=== PATIENT | female | born 1980 | race African-American/Black ===

== ENCOUNTER 2019-12-27 21:11 | Emergency (ER) | payer OTHER ==
--- NOTE | 2019-12-27 23:26 | ER ---
Nurse's Notes [facility] Name: Efren Her Age: 39 yrs Sex: Female : 1980 Arrival Date: 12/27/2019 Time: 21:13 Bed 30 Private MD: Diagnosis: Superficial injury of head Presentation: 12/27 21:27 Chief complaint: Patient states: FELL GETTING OUT OF WHEELCHAIR TO BED. PT STATES SHE ls4 BUMPED HER HEAD. Care prior to arrival: None. Mechanism of Injury: Fall approximately 1.5 feet. Trauma event details: Injury occurred in the [facility], Injury occurred: in an institution. 21:27 Acuity: CONNIE 3 ls4 21:27 Method Of Arrival: EMS: [facility] ls4 21:44 Ebola Screen: No symptoms or risks identified at this time. Initial Sepsis Screen: Does ls4 the patient meet any 2 criteria? No. Patient's initial sepsis screen is negative. Does the patient have a suspected source of infection? No. Patient's initial sepsis screen is negative. Risk Assessment: Do you want to hurt yourself or someone else? Patient reports no desire to harm self or others. 21:44 Onset of symptoms was December 27, 2019 at 20:45. ls4 Triage Assessment: 21:35 General: SEE TRIAGE NOTE . 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 LMP N/A - Hysterectomy ls4 Trauma Activation: Not Applicable Physician: ED Physician; Name: ; Notified At: ; Arrived At: Physician: General Surgeon; Name: ; Notified At: ; Arrived At: Physician: Radiology; Name: ; Notified At: ; Arrived At: Physician: Respiratory; Name: ; Notified At: ; Arrived At: Physician: Lab; Name: ; Notified At: ; Arrived At: Historical: - Allergies: 21:35 Vicodin; ls4 - PMHx: 21:35 MULTIPLE SCLEROSIS; Depression; URINARY INCONTINENCE; Chronic pain; Anxiety; Bipolar ls4 disorder; Seizures; Hyperlipidemia; FREQUENT FALLS; - PSHx: 21:35 Hysterectomy; Tonsillectomy; ls4 - Immunization history:: Adult Immunizations up to date, Last tetanus immunization: up to date Flu vaccine is up to date. - Social history:: Smoking status: unknown. - Coronavirus screen:: The patient has NOT traveled to [place] in the past 14 days. Proceed with normal triage process as indicated. - Ebola Screening: : No symptoms or risks identified at this time. Screenin:43 Abuse screen: Denies threats or abuse. Denies injuries from another. Nutritional ls4 screening: No deficits noted. Tuberculosis screening: No symptoms or risk factors identified. Fall Risk None identified. Assessment: 21:27 General: Appears in no apparent distress. comfortable, Behavior is calm, cooperative. ls4 Pain: Complains of pain in occipital area Pain currently is 3 out of 10 on a pain scale. Neuro: Level of Consciousness is awake, alert, obeys commands, Oriented to person, place, time, situation, Sugar Presser are equal bilaterally Moves all extremities. Weakness Gait is ataxic, BASELINE FOR PATIENT, SHE HAS MS. . Speech is normal, Facial symmetry appears normal, Pupils are PERRLA, Cardiovascular: No deficits noted. Respiratory: No deficits noted. GI: No deficits noted. : No deficits noted. Derm: Skin is intact, Skin is dry, Skin is normal, Skin temperature is warm Wound noted Other: NO VISIBLE WOUNDS Bruising that is NONE . Musculoskeletal: Circulation, motion, and sensation intact. Range of motion: limited in left hip, left knee, right hip and right knee Swelling absent. 22:51 Reassessment: Patient appears in no apparent distress at this time. Patient and/or ls4 family updated on plan of care and expected duration. Pain level reassessed. Patient is alert, oriented x 3, equal unlabored respirations, skin warm/dry/pink. 12/28 00:02 Reassessment: Patient appears in no apparent distress at this time. Patient and/or ls4 family updated on plan of care and expected duration. Pain level reassessed. Patient is alert, oriented x 3, equal unlabored respirations, skin warm/dry/pink. 01:10 Reassessment: Patient appears in no apparent distress at this time. Patient and/or ls4 family updated on plan of care and expected duration. Pain level reassessed. Patient is alert, oriented x 3, equal unlabored respirations, skin warm/dry/pink. ELIZABETH FROM [facility] CALLED TO NOTIFY US THAT SHE IS STILL WORKING ON TRANSPORT BACK TO FACILITY FOR THIS PATIENT. 02:45 Reassessment: Patient appears in no apparent distress at this time. awaiting transport sg to be arranged from [facility] at this time, pt stated understanding, pt reports having pain at this time, requesting tylenol #3 as this is what she normally takes at the [facility]. 03:20 Reassessment: Patient appears in no apparent distress at this time. pt complaining of sg pain, requesting a tylenol with codeine as this is what she normally takes at home, notified, orders received,pt medicated. Continue to wait for transport to [facility]. 04:46 Reassessment: Patient appears in no apparent distress at this time. Patient and/or sg family updated on plan of care and expected duration. Pain level reassessed. pt laying left side lying position, resp even and unlabored, VS are WNL at this time, awaiting transportation back to [facility] at this time. 05:29 Reassessment: Patient appears in no apparent distress at this time. Cardiovascular: sg Rhythm is sinus bradycardia on bedside monitor. Respiratory: Airway is patent Respiratory effort is even, unlabored, Respiratory pattern is regular, symmetrical, snoring sound heard from pt who is lying right side position, appear comfortable and relaxed at this time. Derm: Skin is normal, Skin temperature is warm. 06:38 Reassessment: Patient appears in no apparent distress at this time. [facility] calls sg to report that they have not succesfully reached a transport service, nurse states " awaiting call backs from order entry administrator approved transport services for their facility, still no call back at this time." pt to be transferred back to [place] once transportation is arranged. 06:45 Reassessment: Day nurse for reports that they will have transport arranged sg around 0800 this morning when the ed transporter arrives for duty. pt continues to await for transport at this time, no distress noted. 07:01 Reassessment: Report received from Shin Scales RN. Awaiting to [facility] for transportation ss back to facility who is reportedly supposed to be here just after 0800 this AM. Pt is resting comfortably in exam room 30 with side rails up x2. Eyes closed, respirations remain even and unlabored. Noise minimized for comfort. 08:25 Reassessment: [facility] transportation tech here to take patient back to facility, but did ss not bring her wheelchair. Diet tray arrived. Assisting patient with feeding while transport techs goes back to facility to obtain wheelchair. 09:10 Reassessment: Pt ate 50% of diet tray. ss Vital Signs: 12/27 21:35 BP 130 / 82; Pulse 74; Resp 16; Temp 98.1(O); Pulse Ox 100% on R/A; Weight 93.44 kg; ls4 Height 5 ft. 0 in. (152.40 cm); Pain 3/10; 22:10 BP 105 / 70; Pulse 70; Resp 14; Pulse Ox 98% ; Pain 3/10; ls4 23:23 BP 110 / 68; Pulse 71; Resp 16; Pulse Ox 99% on R/A; ls4 12/28 01:11 BP 119 / 75; Pulse 70; Resp 14; Temp 98.0(O); Pulse Ox 100% ; Pain 0/10; ls4 02:15 BP 108 / 72; Pulse 77; Resp 16; Pulse Ox 100% on R/A; sg 03:23 BP 111 / 54; Pulse 72; Resp 16; Pulse Ox 100% on R/A; sg 04:47 BP 115 / 60; Pulse 77; Resp 17; Pulse Ox 100% on R/A; Pain 2/10; sg 05:30 BP 92 / 55; Pulse 67; Resp 14; Pulse Ox 99% on R/A; sg 12/27 21:35 Body Mass Index 40.23 (93.44 kg, 152.40 cm) ls4 Eckert Coma Score: 12/27 21:36 Eye Response: spontaneous(4). Verbal Response: oriented(5). Motor Response: obeys jr8 commands(6). Total: 15. ED Course: 21:13 Patient arrived in ED. ls4 21:26 Ann Quiroga, DEJA is Primary Nurse. ls4 21:28 Triage completed. ls4 21:36 Alvaro Graff PA is PHCP. jr8 21:36 Vj Solorio MD is Attending Physician. jr8 21:38 Arm band placed on right wrist. CT ordered. ls4 21:43 Patient has correct armband on for positive identification. Bed in low position. Call ls4 light in reach. Side rails up X 1. desk monitor on. Pulse ox on. NIBP on. 21:43 No provider procedures requiring assistance completed. ls4 21:59 CT Head C Spine In Process Unspecified. EDMS 22:00 PHCP role handed off by Alvaro Graff PA kb 22:00 Dora Tobar FNP-C [facility]. kb 12/28 01:46 Primary Nurse role handed off by Ann Quiroga, DEJA 01:46 Shin Scales, RN is Primary Nurse. sg 09:10 Patient did not have IV access during this emergency room visit. ss Administered Medications: 03:20 Drug: Tylenol #3 (300 mg-30 mg) 1 tablet Route: PO; sg 04:47 Follow up: Response: No adverse reaction; Pain is decreased Outcome: 12/27 23:23 Discharge ordered by MD. kb 23:46 Discharged to [facility]. Report called to ELIZABETH PALMER, SHE IS CALLING FOR ls4 TRANSPORT. 12/28 09:10 Condition: stable ss Discharge instructions given to patient, Instructed on discharge instructions, follow up and referral plans. Demonstrated understanding of instructions, follow-up care. 09:11 Patient left the ED. ss Signatures: Dispatcher [employer] EDMS Dora Tobar FNP-C ARMATURE WINDER REPAIR HELPER-Ckb Shin Scales, DEJA SHORT Risa Levine RN RN Alvaro Graff PA PA jr8 Ann Quiroga, RN RN ls4
--- NOTE | 2019-12-27 23:26 | EDPHYS ---
Physician Documentation [facility] Name: Efren Her Age: 39 yrs Sex: Female : 1980 Arrival Date: 12/27/2019 Time: 21:13 Bed 30 Private MD: ED Physician Vj Solorio HPI: 12/27 21:36 This 39 yrs old Female presents to ER via EMS with complaints of head injury. jr8 21:36 The patient or guardian reports tenderness. The complaints affect the occipital area. jr8 Context of injury: The problem was sustained at home, resulted from a fall, out of chair trying to transfer to bed. Onset: The symptoms/episode began/occurred acutely, today. Associated signs and symptoms: Loss of consciousness: This patient experience a loss of consciousness. Severity of symptoms: At their worst the symptoms were moderate, in the emergency department the symptoms have improved, moderately. The patient has not experienced similar symptoms in the past. The patient has not recently seen a physician. 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 - Social history:: Smoking status: unknown. - Coronavirus screen:: The patient has NOT traveled to [place] in the past 14 days. Proceed with normal triage process as indicated. - Ebola Screening: : No symptoms or risks identified at this time. ROS: 21:36 Eyes: Negative for injury, pain, redness, and discharge, ENT: Negative for injury, jr8 pain, and discharge, Neck: Negative for injury, pain, and swelling, Cardiovascular: Negative for chest pain, palpitations, and edema, Respiratory: Negative for shortness of breath, cough, wheezing, and pleuritic chest pain, Abdomen/GI: Negative for abdominal pain, nausea, vomiting, diarrhea, and constipation, Back: Negative for injury and pain, MS/Extremity: Negative for injury and deformity, Skin: Negative for injury, rash, and discoloration. 21:36 Neuro: Positive for headache, loss of consciousness. Exam: 21:36 Eyes: Pupils equal round and reactive to light, extra-ocular motions intact. Lids and jr8 lashes normal. Conjunctiva and sclera are non-icteric and not injected. Cornea within normal limits. Periorbital areas with no swelling, redness, or edema. ENT: Nares patent. No nasal discharge, no septal abnormalities noted. Tympanic membranes are normal and external auditory canals are clear. Oropharynx with no redness, swelling, or masses, exudates, or evidence of obstruction, uvula midline. Mucous membranes moist. Neck: Trachea midline, no thyromegaly or masses palpated, and no cervical lymphadenopathy. Supple, full range of motion without nuchal rigidity, or vertebral point tenderness. No Meningismus. Cardiovascular: Regular rate and rhythm with a normal S1 and S2. No gallops, murmurs, or rubs. Normal PMI, no JVD. No pulse deficits. Respiratory: Lungs have equal breath sounds bilaterally, clear to auscultation and percussion. No rales, rhonchi or wheezes noted. No increased work of breathing, no retractions or nasal flaring. Abdomen/GI: Soft, non-tender, with normal bowel sounds. No distension or tympany. No guarding or rebound. No evidence of tenderness throughout. Back: No spinal tenderness. No costovertebral tenderness. Full range of motion. Skin: Warm, dry with normal turgor. Normal color with no rashes, no lesions, and no evidence of cellulitis. MS/ Extremity: Pulses equal, no cyanosis. Neurovascular intact. Full, normal range of motion. Neuro: Awake and alert, GCS 15, oriented to person, place, time, and situation. Cranial nerves II-XII grossly intact. Motor strength 5/5 in all extremities. Sensory grossly intact. Resting tremor present 21:36 Head/face: Noted is tenderness, that is mild, of the occipital area. Vital Signs: 21:35 BP 130 / 82; Pulse 74; Resp 16; Temp 98.1(O); Pulse Ox 100% on R/A; Weight 93.44 kg; ls4 Height 5 ft. 0 in. (152.40 cm); Pain 3/10; 22:10 BP 105 / 70; Pulse 70; Resp 14; Pulse Ox 98% ; Pain 3/10; ls4 23:23 BP 110 / 68; Pulse 71; Resp 16; Pulse Ox 99% on R/A; ls4 12/28 01:11 BP 119 / 75; Pulse 70; Resp 14; Temp 98.0(O); Pulse Ox 100% ; Pain 0/10; ls4 02:15 BP 108 / 72; Pulse 77; Resp 16; Pulse Ox 100% on R/A; sg 03:23 BP 111 / 54; Pulse 72; Resp 16; Pulse Ox 100% on R/A; sg 04:47 BP 115 / 60; Pulse 77; Resp 17; Pulse Ox 100% on R/A; Pain 2/10; sg 05:30 BP 92 / 55; Pulse 67; Resp 14; Pulse Ox 99% on R/A; sg 12/27 21:35 Body Mass Index 40.23 (93.44 kg, 152.40 cm) ls4 Rod Coma Score: 12/27 21:36 Eye Response: spontaneous(4). Verbal Response: oriented(5). Motor Response: obeys jr8 commands(6). Total: 15. MDM: 21:36 Patient medically screened. jr8 21:36 Data reviewed: vital signs, nurses notes, radiologic studies, CT scan. Data jr8 interpreted: Pulse oximetry: on room air is 100 %. Interpretation: normal. Counseling: I had a detailed discussion with the patient and/or guardian regarding: the historical points, exam findings, and any diagnostic results supporting the discharge/admit diagnosis, radiology results, the need for outpatient follow up, a family practitioner, to return to the emergency department if symptoms worsen or persist or if there are any questions or concerns that arise at home. 12/27 21:36 Order name: CT Head C Spine jr8 12/28 06:47 Order name: Diet Regular; Complete Time: 06:47 sg Administered Medications: 12/28 03:20 Drug: Tylenol #3 (300 mg-30 mg) 1 tablet Route: PO; sg 04:47 Follow up: Response: No adverse reaction; Pain is decreased sg Disposition: 12/27/19 23:23 Discharged to Home. Impression: Superficial injury of head. - Condition is Stable. - Discharge Instructions: Head Injury, Adult, Hematoma. - Medication Reconciliation Form, Thank You Letter, Antibiotic Education, Prescription Opioid Use form. - Follow up: Private Physician; When: As needed; Reason: Recheck today's complaints, Continuance of care, Re-evaluation by your physician. - Problem is new. - Symptoms have improved. Addendum: 12/30/2019 19:02 Co-signature as Attending Physician, Vj ny Signatures: Dispatcher [employer] EDNY Dora Tobar, BULL LADLE TENDER-C BULL LADLE TENDER-Ckb Shin Scales, RN RN Vj Chandra MD MD pkRisa Armstrong RN RN Alvaro Randall PA PA jr8 Ann Quiroga RN RN ls4 Corrections: (The following items were deleted from the chart) 12/28 09:11 12/27 23:23 12/27/2019 23:23 Discharged to Home. Impression: Superficial injury of ss head. Condition is Stable. Discharge Instructions: Head Injury, Adult, Hematoma. Forms are Medication Reconciliation Form, Thank You Letter, Antibiotic Education, Prescription Opioid Use. Follow up: Private Physician; When: As needed; Reason: Recheck today's complaints, Continuance of care, Re-evaluation by your physician. Problem is new. Symptoms have improved. kb
[2019-12-28] MEDS ORDERED: CODEINE 30MG/APAP 300MG TAB ONE (03:20)
[2019-12-28 09:29] VITALS: TEMP 98
[2019-12-28 09:35] VITALS: BP 92/55; O2SAT 99
--- NOTE | 2019-12-31 15:25 | RAD REPORT ---
EXAM DESCRIPTION: CT - [id number] - 12/28/2019 12:59 am CLINICAL HISTORY: Trauma. COMPARISON: None. TECHNIQUE: CT scan of the brain and cervical spine without IV contrast. This exam was performed acco rding to our departmental dose-optimization program, which includes automated exposure control, adjus tment of the mA and/or kV according to patient size and/or use of iterative reconstruction technique. FINDINGS: BRAIN: There are scattered areas of hypoattenuation within the periventricular white matter, which likely re present chronic microvascular ischemia. No evidence of acute infarction, intracranial hemorrhage, ext ra-axial fluid collection, or midline shift. No air-fluid levels are seen in the paranasal sinuses to suggest acute sinusitis. No depressed skull fracture. CERVICAL SPINE: No acute cervical fracture or prevertebral soft tissue swelling. There is straightening of the normal cervical lordosis, which may be due to cervical collar, muscle spasm, or patient positioning. The fa cet joints and disc spaces are preserved. No advanced canal stenosis is identified. IMPRESSION: 1. No acute intracranial hemorrhage. 2. No acute fracture or subluxation of the cervical spine. Electronically signed by: Jose Marc MD 12/27/2019 10:41 PM CHECK TOTALER Due to temporary technical issues with the PACS/Fluency reporting system, reports are being signed by the in house radiologist as a courtesy to ensure prompt reporting. The interpreting radiologist is f ully responsible for the content of the report.
== END 2019-12-28 09:11 | disposition home or self-care (01) ==
LOC: ER 21:11
DX: S00.90XA Unspecified superficial injury of unspecified part of head, initial encounter (principal); W07.XXXA Fall from chair, initial encounter; Z91.81 History of falling; Y93.9 Activity, unspecified; Y92.013 Bedroom of single-family (private) house as the place of occurrence of the external cause; Z88.6 Allergy status to analgesic agent
CPT/HCPCS: 70450; 72125; 99284

== ENCOUNTER 2020-01-02 21:31 | Emergency (ER) | payer OTHER ==
--- NOTE | 2020-01-02 22:05 | RAD REPORT ---
EXAM DESCRIPTION: Melisa Single View01/02/2020 9:56 pm CLINICAL HISTORY: Chest pain COMPARISON: none FINDINGS: Elevation of left hemidiaphragm Left lateral base is mildly hazy which could indicate a small pleural effusion, pleural thickening or overlying soft tissue Lungs appear clear of acute infiltrate. Heart is mildly enlarged
--- NOTE | 2020-01-02 23:09 | ER ---
Nurse's Notes [facility] Name: Efren Her Age: 39 yrs Sex: Female : 1980 Arrival Date: 01/02/2020 Time: 21:32 Bed 18 Private MD: Diagnosis: Concussion without loss of consciousness;Contusion of unspecified part of head;Contusion of left front wall of thorax Presentation: 01/01 21:32 Chief complaint: EMS states: Reports she was trying to get chocolate syrup off the floor and fell out of the wheelchair states she fell onto her left side and hit the side of her head. Denies LOC. Care prior to arrival: BP: 131/84, pulse 65, respirations 16, O2 99% room air. 21:32 Acuity: CONNIE 3 21:32 Method Of Arrival: EMS: [facility] 21:40 Mechanism of Injury: Fall wheelchair to floor. Trauma event details: Injury occurred in the [facility], Injury occurred: [facility] Injury occurred: January 02, 2020 Injury occurred at: 21:41. 21:41 Coronavirus screen: The patient has NOT traveled to a country currently being monitored ea by the [facility] within the last 14 days. Ebola Screen: No symptoms or risks identified at this time. Initial Sepsis Screen: Does the patient meet any 2 criteria? No. Patient's initial sepsis screen is negative. Does the patient have a suspected source of infection? No. Patient's initial sepsis screen is negative. Risk Assessment: Do you want to hurt yourself or someone else? Patient reports no desire to harm self or others. Triage Assessment: 21:42 General: Appears in no apparent distress. Behavior is appropriate for age. Pain: ea Complains of pain in left side of face and left ribs. Neuro: Level of Consciousness is awake, alert, obeys commands, Oriented to person, place, time, situation. Cardiovascular: Patient's skin is warm and dry. Respiratory: Airway is patent Respiratory effort is even, unlabored, Respiratory pattern is regular, symmetrical. Derm: Skin is pink, warm \T\ dry. Trauma Activation: Not Applicable Physician: ED Physician; Name: ; Notified At: ; Arrived At: Physician: General Surgeon; Name: ; Notified At: ; Arrived At: Physician: Radiology; Name: ; Notified At: ; Arrived At: Physician: Respiratory; Name: ; Notified At: ; Arrived At: Physician: Lab; Name: ; Notified At: ; Arrived At: Historical: - Allergies: 21:42 Vicodin; ea - PMHx: 21:42 Urinary incontinence; Seizures; Multiple Sclerosis; Hyperlipidemia; frequent falls; ea Depression; Chronic pain; Bipolar disorder; Anxiety; - PSHx: 21:42 Tonsillectomy; Hysterectomy; ea - Immunization history:: Adult Immunizations up to date. - Immunization history: Last tetanus immunization: - up to date. - Social history:: Smoking status: Patient denies any tobacco usage or history of. Screenin:37 Abuse screen: Denies threats or abuse. Nutritional screening: No deficits noted. ea Tuberculosis screening: No symptoms or risk factors identified. Fall Risk Fall in past 12 months (25 points). Primary Survey: 21:38 NO uncontrolled hemorrhage observed. A: The patient is alert. Airway: patent. ea Breathing/Chest: Respiratory pattern: regular, Respiratory effort: spontaneous, unlabored. Circulation: Skin color: pink, Skin temperature: warm. Disability Alert. Exposure/Environment: There is no evidence of uncontrolled external bleeding. 22:45 Reassessment Airway Airway Patent Breathing/Chest Respiratory pattern Regular ea Respiratory effort Spontaneous Unlabored. Assessment: 23:10 Reassessment: Patient and/or family updated on plan of care and expected duration. Pain ea level reassessed. Patient is alert, oriented x 3, equal unlabored respirations, skin warm/dry/pink. 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 01/02 00:00 Reassessment: Patient and/or family updated on plan of care and expected duration. Pain ea level reassessed. Patient is alert, oriented x 3, equal unlabored respirations, skin warm/dry/pink. 01:35 Reassessment: Patient and/or family updated on plan of care and expected duration. Pain ea level reassessed. Patient is alert, oriented x 3, equal unlabored respirations, skin warm/dry/pink. [facility] at facility for transfer, pt left ED via [facility]. Pt left facility via stretcher tolerating well. Vital Signs: 01/01 21:38 BP 133 / 73; Pulse 65; Resp 18; Temp 98; Pulse Ox 98% on R/A; Weight 59.87 kg; Height 5 ea ft. (152.40 cm); Pain 3/10; 22:45 BP 112 / 76; Pulse 60; Resp 18; Pulse Ox 98% on R/A; ea 01/02 01:00 BP 137 / 90; Pulse 68; Resp 18; Pulse Ox 98% ; ea 03 21:38 Body Mass Index 25.78 (59.87 kg, 152.40 cm) ea Rod Coma Score: 01/01 21:38 Eye Response: spontaneous(4). Verbal Response: oriented(5). Motor Response: obeys ea commands(6). Total: 15. Trauma Score (Adult): 21:38 Eye Response: spontaneous(1); Verbal Response: oriented(1); Motor Response: obeys ea commands(2); Systolic BP: > 89 mm Hg(4); Respiratory Rate: 10 to 29 per min(4); Rod Score: 15; Trauma Score: 12 ED Course: 21:31 Arm band placed on right wrist. Patient placed in an exam room, on a stretcher, on ea pulse oximetry. 21:31 Patient has correct armband on for positive identification. Bed in low position. Call ea light in reach. Side rails up X2. 21:32 Patient arrived in ED. cf2 21:32 Emely Anderson, RN is Primary Nurse. ea 21:34 Perez Trevino MD is Attending Physician. tw4 21:37 Triage completed. ea 21:37 Patient maintains SpO2 saturation greater than 95% on room air. Thermoregulation: warm ea blanket given to patient. 21:49 Head Brain Wo Cont In Process Unspecified. EDMS 21:57 CXR XRAY In Process Unspecified. EDMS 23:10 No provider procedures requiring assistance completed. Patient did not have IV access ea during this emergency room visit. Administered Medications: 01/02 01:18 Drug: Tylenol #3 (300 mg-30 mg) 1 tablet Route: PO; ea 01:41 Follow up: Response: Medication administered at discharge. ea Intake: 01/01 21:38 PO: 0ml; Total: 0ml. ea Outcome: 23:08 Discharge ordered by . tw4 01/02 01:40 Discharged to [facility]. Report called to Kelsie KING Transfer form completed. Left ea via EMS Condition: stable Discharge instructions given to patient, Instructed on discharge instructions, follow up and referral plans. medication usage, Demonstrated understanding of instructions, follow-up care, medications, Prescriptions given X 1. 01:42 Patient left the ED. ea Signatures: Dispatcher [employer] Emely Fong, RN RN Perez Poole MD MD tw4 Tushar Camejo 2
--- NOTE | 2020-01-02 23:09 | EDPHYS ---
Physician Documentation [facility] Name: Efren Her Age: 39 yrs Sex: Female : 1980 Arrival Date: 01/02/2020 Time: 21:32 Bed 18 Private MD: ED Physician Perez Trevino HPI: 01/02 01:29 This 39 yrs old Black Female presents to ER via EMS with complaints of Fall Injury. tw4 01:29 Details of fall: The patient fell from seated position, out of a wheelchair. Onset: The tw4 symptoms/episode began/occurred just prior to arrival. Associated injuries: The patient sustained injury to the head, contusion. Severity of symptoms: At their worst the symptoms were mild. The patient has not experienced similar symptoms in the past. Historical: - Allergies: 01/01 21:42 Vicodin; ea - PMHx: 21:42 Urinary incontinence; Seizures; Multiple Sclerosis; Hyperlipidemia; frequent falls; ea Depression; Chronic pain; Bipolar disorder; Anxiety; - PSHx: 21:42 Tonsillectomy; Hysterectomy; ea - Immunization history:: Adult Immunizations up to date. - Immunization history: Last tetanus immunization: - up to date. - Social history:: Smoking status: Patient denies any tobacco usage or history of. ROS: 01/02 01:29 Constitutional: Negative for fever, chills, and weight loss, Eyes: Negative for injury, tw4 pain, redness, and discharge, Respiratory: Negative for shortness of breath, cough, wheezing, and pleuritic chest pain, Abdomen/GI: Negative for abdominal pain, nausea, vomiting, diarrhea, and constipation, Back: Negative for injury and pain, MS/Extremity: Negative for injury and deformity, Skin: Negative for injury, rash, and discoloration, Neuro: Negative for headache, weakness, numbness, tingling, and seizure. Cardiovascular: Positive for chest pain, Negative for edema, orthopnea, palpitations, paroxysmal nocturnal dyspnea. Exam: 01:29 Constitutional: This is a well developed, well nourished patient who is awake, alert, tw4 and in no acute distress. Head/Face: Normocephalic, atraumatic. Cardiovascular: Regular rate and rhythm with a normal S1 and S2. No gallops, murmurs, or rubs. Normal PMI, no JVD. No pulse deficits. Respiratory: Lungs have equal breath sounds bilaterally, clear to auscultation and percussion. No rales, rhonchi or wheezes noted. No increased work of breathing, no retractions or nasal flaring. Abdomen/GI: Soft, non-tender, with normal bowel sounds. No distension or tympany. No guarding or rebound. No evidence of tenderness throughout. Back: No spinal tenderness. No costovertebral tenderness. Full range of motion. MS/ Extremity: Pulses equal, no cyanosis. Neurovascular intact. Full, normal range of motion. Neuro: Awake and alert, GCS 15, oriented to person, place, time, and situation. Cranial nerves II-XII grossly intact. Motor strength 5/5 in all extremities. Sensory grossly intact. Cerebellar exam normal. Normal gait. 01:29 Chest/axilla: Inspection: normal, Palpation: tenderness, of the left lateral anterior chest, that partially reproduces the patient's complaints. Vital Signs: 01/01 21:38 BP 133 / 73; Pulse 65; Resp 18; Temp 98; Pulse Ox 98% on R/A; Weight 59.87 kg; Height 5 ea ft. (152.40 cm); Pain 3/10; 22:45 BP 112 / 76; Pulse 60; Resp 18; Pulse Ox 98% on R/A; ea 01/02 01:00 BP 137 / 90; Pulse 68; Resp 18; Pulse Ox 98% ; ea 01/01 21:38 Body Mass Index 25.78 (59.87 kg, 152.40 cm) ea [place] Coma Score: 01/01 21:38 Eye Response: spontaneous(4). Verbal Response: oriented(5). Motor Response: obeys ea commands(6). Total: 15. Trauma Score (Adult): 21:38 Eye Response: spontaneous(1); Verbal Response: oriented(1); Motor Response: obeys ea commands(2); Systolic BP: > 89 mm Hg(4); Respiratory Rate: 10 to 29 per min(4); Rod Score: 15; Trauma Score: 12 MDM: 21:34 Patient medically screened. tw4 01/02 01:29 Differential diagnosis: closed head injury, contusion. Data reviewed: vital signs, tw4 nurses notes. Counseling: I had a detailed discussion with the patient and/or guardian regarding: the historical points, exam findings, and any diagnostic results supporting the discharge/admit diagnosis. Special discussion: I discussed with the patient/guardian in detail that at this point there is no indication for admission to the hospital. It is understood, however, that if the symptoms persist or worsen the patient needs to return immediately for re-evaluation. 01/01 21:35 Order name: CXR XRAY tw4 01/01 21:43 Order name: Head Brain Wo Cont EDMS Administered Medications: 01:18 Drug: Tylenol #3 (300 mg-30 mg) 1 tablet Route: PO; ea 01:41 Follow up: Response: Medication administered at discharge. ea Disposition: 01/02/20 23:08 Discharged to Home. Impression: Concussion without loss of consciousness, Contusion of unspecified part of head, Contusion of left front wall of thorax. - Condition is Stable. - Discharge Instructions: Contusion, Chest Wall Pain, Head Injury, Adult, [id number]. - Prescriptions for Ibuprofen 800 mg Oral Tablet - take 1 tablet by ORAL route every 8 hours As needed take with food; 30 tablet. - Medication Reconciliation Form, Thank You Letter, Antibiotic Education, Prescription Opioid Use, SBAR form form. - Follow up: Private Physician; When: Upon discharge from the Emergency Department; Reason: Recheck today's complaints, Continuance of care, Re-evaluation by your physician. - Problem is new. - Symptoms have improved. Signatures: Dispatcher [employer] [facility] Emely Anderson RN RN ea Wadley, Terrence, MD MD tw4 Corrections: (The following items were deleted from the chart) 01/01 21:47 21:43 Head Brain Wo Cont+CT.RAD.BRZ ordered. [facility] 01/02 01:42 01/01 23:08 01/02/2020 23:08 Discharged to Home. Impression: Concussion without loss of ea consciousness; Contusion of unspecified part of head; Contusion of left front wall of thorax. Condition is Stable. Forms are Medication Reconciliation Form, Thank You Letter, Antibiotic Education, Prescription Opioid Use. Follow up: Private Physician; When: Upon discharge from the Emergency Department; Reason: Recheck today's complaints, Continuance of care, Re-evaluation by your physician. Problem is new. Symptoms have improved. tw4
[2020-01-03] MEDS ORDERED: CODEINE 30MG/APAP 300MG TAB ONE (01:11)
[2020-01-03 01:58] VITALS: TEMP 98; O2SAT 98
[2020-01-03 02:01] VITALS: BP 137/90
--- NOTE | 2020-01-03 09:51 | RAD REPORT ---
EXAM DESCRIPTION: CT - Head Brain Wo Cont - 01/03/2020 7:18 am CLINICAL HISTORY: 39 years Female, FALL TECHNIQUE: 5 mm axial images were obtained along with 3 mm reformatted coronal and sagittal images. This exam was performed according to our departmental dose-optimization program, which includes autom ated exposure control, adjustment of the mA and/or kV according to patient size and/or use of iterati ve reconstruction technique. COMPARISON: December 27, 2019. FINDINGS: No acute abnormal extracerebral fluid collections are demonstrated. The cortical sulci, ventricles, and cisterns are moderately prominent suggestive of global parenchyma l volume loss. There is severe chronic bilateral periventricular and subcortical microvascular white matter changes. . There are no areas of altered attenuation identified to suggest acute hemorrhage, infarction, or mass lesion. The visualized portions of the paranasal sinuses and mastoid air cells are clear. IMPRESSION: 1. No acute intracranial abnormality. 2. No significant change from exam dated 12/27/2019. Electronically signed by: Bryant Gamble MD 01/02/2020 10:00 PM [employer] MANAGER Due to temporary technical issues with the PACS/Fluency reporting system, reports are being signed by the in house radiologist as a courtesy to ensure prompt reporting. The interpreting radiologist is f ully responsible for the content of the report.
== END 2020-01-03 01:42 | disposition home or self-care (01) ==
LOC: ER 21:31
DX: S06.0X0A Concussion without loss of consciousness, initial encounter (principal); S20.212A Contusion of left front wall of thorax, initial encounter; W05.0XXA Fall from non-moving wheelchair, initial encounter; Y93.9 Activity, unspecified; Y92.9 Unspecified place or not applicable; Z91.81 History of falling; Z88.5 Allergy status to narcotic agent
CPT/HCPCS: 70450; 71045; 99284

== ENCOUNTER 2020-01-23 12:30 | Emergency (ER) | payer OTHER ==
--- NOTE | 2020-01-23 13:24 | RAD REPORT ---
EXAM DESCRIPTION: CT - CTHCSPWOC - 01/23/2020 1:12 pm CLINICAL HISTORY: Trauma, head and neck injury. fall, head injury COMPARISON: Head C Spine Mpr Wo Con dated 12/27/2019 TECHNIQUE: Axial 5 mm thick images of the head were obtained. Axial 2 mm thick images of the cervical spine were obtained with sagittal and coronal reconstruction images generated and reviewed. All CT scans are performed using dose optimization technique as appropriate and may include automated exposure control or mA/KV adjustment according to patient size. FINDINGS: CT HEAD WITHOUT CONTRAST: No acute hemorrhage, hydrocephalus or extra-axial collection is identified.Moderate atrophy and chron ic microvascular ischemic changes in the periventricular and deep white matter are stable.No areas of brain edema or midline shift. The paranasal sinuses and mastoids are clear.The calvarium is intact. CT CERVICAL SPINE WITHOUT CONTRAST: No fracture or subluxation.Mild lower cervical degenerative changes are present.No prevertebral soft tissues swelling is identified. IMPRESSION: No acute intracranial or cervical spine findings.
--- NOTE | 2020-01-23 13:37 | EDPHYS ---
Physician Documentation [facility] Name: Efren Her Age: 39 yrs Sex: Female : 1980 Arrival Date: 01/23/2020 Time: 12:38 Bed 24 Private MD: ED Physician Aiden Vasquez HPI: 01/22 12:58 This 39 yrs old Black Female presents to ER via EMS with complaints of Head Injury. rn 12:58 The patient or guardian reports injury, pain, tenderness. The complaints affect the rn back of head. Onset: The symptoms/episode began/occurred last night. Associated signs and symptoms: Loss of consciousness: This patient did not experience any loss of consciousness. Pertinent positives: headache, injury, Pertinent negatives: double vision, incontinence, seizure. Severity of symptoms: At their worst the symptoms were mild, in the emergency department the symptoms are unchanged. The patient has not experienced similar symptoms in the past. Sent for ct of head, per report fell last night trying to stand up, hit back of head, unsure if LOC, dneies other injury, states has MS and at baseline neurologically. + tenderness back of head and not going away. Had xray that showed hematoma and sent for CT. . 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 - Family history:: not pertinent. - Social history:: Smoking status: Patient denies any tobacco usage or history of. - Hospitalizations: : No recent hospitalization is reported. ROS: 12:58 Constitutional: Negative for fever, chills, and weight loss, Eyes: Negative for injury, rn pain, redness, and discharge, Neck: Negative for injury, pain, and swelling, Cardiovascular: Negative for chest pain, palpitations, and edema, Respiratory: Negative for shortness of breath, cough, wheezing, and pleuritic chest pain, Abdomen/GI: Negative for abdominal pain, nausea, vomiting, diarrhea, and constipation, MS/Extremity: Negative for injury and deformity, Neuro: + headache, no new neurological complaints. Exam: 12:58 Constitutional: This is a well developed, well nourished patient who is awake, alert, rn and in no acute distress. Head/Face: Normocephalic, + small hematoma/tenderness occiput of head Eyes: Pupils equal round and reactive to light, extra-ocular motions intact. ENT: no oral trauma Neck: No midline cervical tenderness Chest/axilla: Nontender with no deformity. Cardiovascular: Regular rate and rhythm. No pulse deficits. Respiratory: No increased work of breathing, no retractions or nasal flaring. Abdomen/GI: soft, non-tender MS/ Extremity: Pulses equal, no cyanosis. Neurovascular intact. Neuro: Awake and alert, GCS 15, oriented to person, place, and situation. Motor strength 4/5 RUE/LUE/LLE, 3+/5 RLE. Vital Signs: 12:48 BP 116 / 57; Pulse 81; Resp 16; Temp 97.4(O); Pulse Ox 100% ; lt1 14:05 BP 135 / 105; Pulse 85; Resp 20; Pulse Ox 97% ; vc [place] Coma Score: 12:58 Eye Response: spontaneous(4). Verbal Response: oriented(5). Motor Response: obeys rn commands(6). Total: 15. 13:34 Eye Response: spontaneous(4). Verbal Response: oriented(5). Motor Response: obeys rn commands(6). Total: 15. MDM: 12:53 Patient medically screened. rn 13:34 Differential diagnosis: Contusion of Hematoma on Intracranial bleed- Concussion rn cerebral contusion. Data reviewed: vital signs, nurses notes, radiologic studies, CT scan, and as a result, I will discharge patient. Counseling: I had a detailed discussion with the patient and/or guardian regarding: the historical points, exam findings, and any diagnostic results supporting the discharge/admit diagnosis, radiology results, the need for outpatient follow up, to return to the emergency department if symptoms worsen or persist or if there are any questions or concerns that arise at home. Special discussion: Based on the patient's history, exam and DX evaluation, there is no indication for emergent intervention or inpatient TX. It is understood by the patient/guardian that if the SXs persist or worsen they need to return immediately for re-evaluation. I discussed with the patient/guardian in detail that at this point there is no indication for admission to the hospital. It is understood, however, that if the symptoms persist or worsen the patient needs to return immediately for re-evaluation. ED course: Neg CT head/cspine, will dc home. . 01/22 12:57 Order name: CT Head C Spine rn Administered Medications: No medications were administered Disposition: 01/23/20 13:35 Discharged to Home. Impression: Superficial injury of head. - Condition is Stable. - Discharge Instructions: Head Injury, Adult. - Medication Reconciliation Form, Thank You Letter, Antibiotic Education, Prescription Opioid Use form. - Follow up: Private Physician; When: As needed; Reason: Recheck today's complaints, Re-evaluation by your physician. - Problem is new. - Symptoms have improved. Signatures: Dispatcher [employer] EDMS Aiden Vasquez MD MD rn Marie Arnold RN RN vc Corrections: (The following items were deleted from the chart) 15:22 13:35 01/23/2020 13:35 Discharged to Home. Impression: Superficial injury of head. vc Condition is Stable. Forms are Medication Reconciliation Form, Thank You Letter, Antibiotic Education, Prescription Opioid Use. Follow up: Private Physician; When: As needed; Reason: Recheck today's complaints, Re-evaluation by your physician. Problem is new. Symptoms have improved. rn
--- NOTE | 2020-01-23 13:37 | ER ---
Nurse's Notes [facility] Name: Efren Her Age: 39 yrs Sex: Female : 1980 Arrival Date: 01/23/2020 Time: 12:38 Bed 24 Private MD: Diagnosis: Superficial injury of head Presentation: 01/22 12:40 Risk Assessment: Do you want to hurt yourself or someone else? Patient reports no vc desire to harm self or others. 12:43 Chief complaint: EMS states: pt attempted to move herself from wheelchair to bed dm5 yesterday and fell, hit the back of her head. Had an x-ray, showed a hematoma. Physician wants a CT. Coronavirus screen: Patient denies fever greater than 100.4F, cough, shortness of breath, or difficulty breathing. Proceed with normal triage process. Ebola Screen: Patient negative for fever greater than or equal to 101.5 degrees Fahrenheit, and additional compatible Ebola Virus Disease symptoms Patient denies exposure to infectious person. Patient denies travel to an Ebola-affected area in the 21 days before illness onset. No symptoms or risks identified at this time. Initial Sepsis Screen: Does the patient meet any 2 criteria? No. Patient's initial sepsis screen is negative. Does the patient have a suspected source of infection? No. Patient's initial sepsis screen is negative. 12:43 Method Of Arrival: EMS: [facility] dm5 12:46 Note pt reports she may have lost consciousness for a few seconds. dm5 12:46 Acuity: CONNIE 3 dm5 13:56 Onset of symptoms was January 22, 2020. vc Triage Assessment: 12:40 General: Appears in no apparent distress. comfortable, Behavior is calm, cooperative, vc appropriate for age. Pain: Complains of pain in back of head. 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 - Family history:: not pertinent. - Social history:: Smoking status: Patient denies any tobacco usage or history of. - Hospitalizations: : No recent hospitalization is reported. Screenin:40 Abuse screen: Denies threats or abuse. Nutritional screening: No deficits noted. vc Tuberculosis screening: No symptoms or risk factors identified. Fall Risk Fall in past 12 months (25 points). Secondary diagnosis (15 points) seizures, No IV (0 pts). Assessment: 13:00 General: Appears in no apparent distress. comfortable, Behavior is calm, cooperative, vc appropriate for age. Pain: Complains of pain in head. Neuro: Level of Consciousness is awake, alert, obeys commands, Oriented to person, place, Patient has some confusion when asked about medical history and place of residence.. Cardiovascular: Reports Denies chest pain, Capillary refill < 3 seconds Patient's skin is warm and dry. Respiratory: Airway is patent Respiratory effort is even, unlabored, Respiratory pattern is regular, symmetrical. GI: No signs and/or symptoms were reported involving the gastrointestinal system. : No signs and/or symptoms were reported regarding the genitourinary system. EENT: No signs and/or symptoms were reported regarding the EENT system. Derm: Skin temperature is warm. 14:00 Reassessment: Patient and/or family updated on plan of care and expected duration. Pain vc level reassessed. Patient is alert, oriented x 3, equal unlabored respirations, skin warm/dry/pink. 14:04 Reassessment: Contacted [facility]. 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 14:49 Reassessment: Discharge still pending transportation. vc 15:00 Reassessment: Patient and/or family updated on plan of care and expected duration. Pain vc level reassessed. Patient is alert, oriented x 3, equal unlabored respirations, skin warm/dry/pink. Vital Signs: 12:48 BP 116 / 57; Pulse 81; Resp 16; Temp 97.4(O); Pulse Ox 100% ; lt1 14:05 BP 135 / 105; Pulse 85; Resp 20; Pulse Ox 97% ; vc Rod Coma Score: 12:58 Eye Response: spontaneous(4). Verbal Response: oriented(5). Motor Response: obeys rn commands(6). Total: 15. 13:34 Eye Response: spontaneous(4). Verbal Response: oriented(5). Motor Response: obeys rn commands(6). Total: 15. ED Course: 12:38 Patient arrived in ED. bd 12:40 Arm band placed on. vc 12:45 Triage completed. dm5 12:53 Aiden Vasquez MD is Attending Physician. rn 13:48 Marie Arnold, DEJA is Primary Nurse. vc 13:54 No provider procedures requiring assistance completed. Patient did not have IV access vc during this emergency room visit. 13:56 Patient has correct armband on for positive identification. Bed in low position. Call vc light in reach. Pulse ox on. NIBP on. Administered Medications: No medications were administered Outcome: 13:35 Discharge ordered by . rn 13:54 Condition: good vc 14:11 Discharge instructions given to patient. vc 15:20 Discharged to long term. vc 15:22 Patient left the ED. vc Signatures: Ju Shepherd Deana, RN RN dm5 Aiden Vasquez MD MD rn Yi, Bijal lt1 Marie Arnold RN RN vc Corrections: (The following items were deleted from the chart) 12:47 12:43 Acuity: CONNIE 4 dm5 dm5
[2020-01-23 15:35] VITALS: BP 135/105; O2SAT 97
[2020-01-23 15:36] VITALS: TEMP 97.4
== END 2020-01-23 15:22 | disposition home or self-care (01) ==
LOC: ER 12:30
DX: S00.90XA Unspecified superficial injury of unspecified part of head, initial encounter (principal); W19.XXXA Unspecified fall, initial encounter; Y93.9 Activity, unspecified; Y92.9 Unspecified place or not applicable; Z88.5 Allergy status to narcotic agent
CPT/HCPCS: 70450; 72125; 99283